=== PATIENT | female | born 1980 | race Caucasian/White ===

== ENCOUNTER 2016-08-18 12:52 | Emergency (ER) | payer MEDICAID ==
[~2016-08-18] VITALS: Ht 170.2 cm; Wt 95.3 kg
[~2016-08-18 12:52] MED LIST: IBUPROFEN600 MG ORAL
--- NOTE | 2016-08-18 13:26 | Emergency Room Report ---
History of Present Illness General Chief Complaint: Lower Extremity Injury Source: Patient Present Illness HPI 35-year-old female presents emergency department complaining of sudden out of 10 in severity localized right ankle pain since yesterday is post mechanical fall. Patient believes she may have twisted her ankle in the process. Patient states she took Tylenol this a.m. with minimal relief patient reports moderate swelling and bruising. Patient denies previous injury to the extremity. Denies numbness tingling or loss of sensation or gross motor movements of the extremities, incontinence of bowel or bladder. Denies CP, Palpitations, LOC, AMS , dizziness, Changes in Vision, Sensation, paresthesias, or a sudden severe headache. Allergies: Coded Allergies: PENICILLINS (Verified Allergy, Unknown, 08/18/16) Patient History Past Medical History: see triage record Past Surgical History: none Pertinent Family History: none Last Menstrual Period: 07/24/16 Now: No Reviewed Nursing Documentation: PMH: Agreed, PSxH: Agreed Nursing Documentation-PMH Past Medical History: No Stated History Review of Systems All Other Systems: negative except mentioned in HPI Physical Exam Vital Signs Date Time Temp Pulse Resp B/P Pulse Ox O2 Delivery O2 Flow Rate FiO2 08/18/16 13:00 98.2 90 14 114/82 97 Room Air Sp02 EP Interpretation: reviewed, normal General Appearance: no apparent distress, alert, GCS 15, non-toxic Head: normocephalic, atraumatic Eyes: bilateral eye PERRL, bilateral eye normal inspection ENT: hearing grossly normal, normal pharynx, no angioedema, normal voice Neck: full range of motion, supple/symm/no masses Respiratory: lungs clear, normal breath sounds, speaking full sentences Cardiovascular #1: regular rate, rhythm, no edema, normal capillary refill Musculoskeletal: back normal, gait/station normal, normal range of motion, tender - right ankle and lateral foot tenderness, swelling, and echymosis Neurologic: alert, oriented x3, responsive, motor strength/tone normal, sensory intact, speech normal Psychiatric: judgement/insight normal, memory normal, mood/affect normal Skin: normal color, no rash, warm/dry, well hydrated, other - right ankle and lateral foot tenderness, swelling, and echymosis Medical Decision Making PA Attestation Dr. Piña is my supervising Physician whom patient management has been discussed with. Diagnostic Impression: Primary Impression: Moderate ankle sprain Qualified Codes: S93.401A - Sprain of unspecified ligament of right ankle, initial encounter ER Course 35-year-old female presents emergency department complaining of sudden out of 10 in severity localized right ankle pain since yesterday is post mechanical fall. Patient believes she may have twisted her ankle in the process. Patient states she took Tylenol this a.m. with minimal relief patient reports moderate swelling and bruising. Patient denies previous injury to the extremity. Ddx considered but are not limited to Fracture, dislocation, contusion, Sprain/ Strain/Spasm. Vital signs: are WNL, pt. is afebrile H&PE are most consistent with musculoskeletal injury. ORDERS: - X-ray Right Ankle 3 views - negative for fx, Dislocation, or significant soft tissue injury, per preliminary read in ED by Dr. Piña, and confirmed on official radiology report. - X-ray Right Foot 3 views - negative for fx, Dislocation, or significant soft tissue injury, per preliminary read in ED by Dr. Piña , and confirmed on official radiology report. ED INTERVENTIONS: - [place] PO - Air Splint applied to the right ankle by wind tunnel technician. Pt. remains neurovascularly intact. DISCHARGE: At this time pt. is stable for d/c to home. Will provide printed patient care instructions, and any necessary prescriptions. Care plan and follow up instructions have been discussed with the patient prior to discharge. Last Vital Signs Date Time Temp Pulse Resp B/P Pulse Ox O2 Delivery O2 Flow Rate FiO2 08/18/16 13:00 98.2 90 14 114/82 97 Room Air Disposition: HOME, SELF-CARE Condition: Stable Scripts Hydrocodone Bit/Acetaminophen 5-325* (NORCO 5-325*) 1 Each Tablet 1 TAB ORAL Q8HR Y for For Pain, #3 TAB 0 Refills Prov: Monserrat Densi P.A. 08/18/16 Ibuprofen* (MOTRIN*) 600 Mg Tablet 600 MG ORAL THREE TIMES A DAY, #20 TAB 0 Refills Prov: Monserrat Denis P.A. 08/18/16 Departure Forms: Return to Work Return to Work Date: Aug 22, 2016 Work Restrictions: Desk Work Only Other Restrictions: light duty x 1 week. Return to Full Activity: Aug 25, 2016 Patient Instructions: Ankle Sprain Additional Instructions: Take medications as directed. Follow up with PCP in 3-5 days Return sooner to ED if new symptoms occur, or current symptoms become worse. Do not drink alcohol, drive, or operate heavy machinery while taking [place] as this may cause drowsiness. - Please note that this Emergency Department Report was dictated using [employer] helper technology software, occasionally this can lead to erroneous entry secondary to interpretation by the dictation equipment. Monserrat Denis. Aug 18, 2016 13:26
[2016-08-18] MEDS ORDERED: Norco 7.5mg/325mg tab ORAL ONE (13:30)
[2016-08-18] MEDS ORDERED: Bacitracin Oint UD TOPIC ONE (13:30)
--- NOTE | 2016-08-18 13:57 | Diagnostic Imaging Report ---
Indications: Right foot pain Technique: 3 views of the right foot Findings: Comparison: None. No fracture, dislocation, lytic destruction, periosteal reaction, surrounding soft tissue swelling, or other acute changes are demonstrated. No deformity, alignment abnormality, arthritic change, soft tissue calcification, or other chronic changes are demonstrated. IMPRESSION: Negative right foot series.
[2016-08-18] MEDS ORDERED: NORCO 5-325 TA1 EACH ORAL (14:04)
[2016-08-18] MEDS ORDERED: IBUPROFEN600 MG ORAL (14:04)
[2016-08-18 14:30] VITALS: BP 114/82
--- NOTE | 2016-08-19 11:02 | Diagnostic Imaging Report ---
Indications: Right ankle pain Technique: 3 views right ankle. Findings: Comparison: None Anterolateral soft tissues are swollen. No fracture, dislocation, joint space widening , lytic destruction, periosteal reaction , soft tissue foreign body/gas, or other acute changes are identified. No chronic changes are demonstrated. IMPRESSION: Anterolateral soft tissue swelling, nonspecific. If in the setting of trauma, consider ATFL sprain Otherwise negative right ankle radiographs.
== END 2016-08-18 14:30 | disposition home or self-care (01) ==
LOC: EMR 13:50
DX: S93.401A Sprain of unspecified ligament of right ankle, initial encounter (principal); W19.XXXA Unspecified fall, initial encounter; Y92.019 Unspecified place in single-family (private) house as the place of occurrence of the external cause; Z88.0 Allergy status to penicillin
CPT/HCPCS: 29540; 99284